=== PATIENT | male | born 1975 | race Caucasian/White ===

== ENCOUNTER 2021-02-03 09:58 | Outpatient (REF) | payer MEDICARE, MEDICAID, SELFPAY ==
[2021-02-03 16:53] LABS: ALT 34 U/L (16-63); AST 20 U/L (15-37); Alkaline Phosphatase 89 U/L (46-116); Bilirubin, Total 0.5 mg/dL (0.2-1.0); Calculated LDL 126 mg/dL (<100); Cholesterol 185 mg/dL (<200); HDL Cholesterol 36 mg/dL (40-60); Total Protein 6.6 g/dL (6.4-8.2); Triglyceride 117 mg/dL (<150)
[2021-02-03 17:11] LABS: Bilirubin, Direct 0.1 mg/dL (0.0-0.2)
== END 2021-02-03 09:59 | disposition home or self-care (01) ==
LOC: NCHCN 09:58
PROVIDERS: PCP Family Medicine; Visit Provider Nurse Practitioner Community Health
DX: K76.0 Fatty (change of) liver, not elsewhere classified (principal); Z86.39 Personal history of other endocrine, nutritional and metabolic disease; Z68.35 Body mass index [BMI] 35.0-35.9, adult
CPT/HCPCS: 80061; 80076; 83036

== ENCOUNTER 2022-11-10 16:11 | Outpatient (REF) | payer MEDICARE, MEDICAID, SELFPAY ==
[2022-11-10 22:42] LABS: Hemoglobin A1C 9.7 % (<5.7)
[2022-11-10 22:59] LABS: Anion Gap 9.4 mmol/L (3-11); BUN 17 mg/dL (7-18); CO2 27.6 mmol/L (21.0-32.0); CREATININE 0.9 mg/dL (0.70-1.30); Calcium 8.6 mg/dL (8.5-10.1); Calculated LDL 151 mg/dL (<100); Chloride 103 mmol/L (98-107); Cholesterol 206 mg/dL (<200); Estimated GFR 107.33 (mL/min/1.73m2); Glucose 264 mg/dL (74-106); HDL Cholesterol 38 mg/dL (40-60); Potassium 4.4 mmol/L (3.5-5.1); Sodium 140 mmol/L (136-145); Triglyceride 86 mg/dL (<150)
[2022-11-11 19:13] LABS: PSA, Screening 0.9 ng/mL (<=2.5)
[2022-11-12 09:47] LABS: Hepatitis C Ab w Rflx HCV PCR Negative (Negative)
[2022-11-12 10:09] LABS: HIV-1/2 Ag & Ab Screen Negative (Negative)
[2022-11-12 13:19] LABS: Chlamydia Result Negative (Negative); GC Result Negative (Negative)
== END 2022-11-10 16:12 | disposition home or self-care (01) ==
LOC: NCHCN 16:11
PROVIDERS: PCP Family Medicine; Visit Provider Nurse Practitioner Family
DX: I42.9 Cardiomyopathy, unspecified (principal); R73.03 Prediabetes; Z12.5 Encounter for screening for malignant neoplasm of prostate; Z11.4 Encounter for screening for human immunodeficiency virus [HIV]; Z11.59 Encounter for screening for other viral diseases; E78.5 Hyperlipidemia, unspecified; Z11.3 Encounter for screening for infections with a predominantly sexual mode of transmission
CPT/HCPCS: 80048; 80061; 84153; 86803; 87389; 87491; 87591; 83036

== ENCOUNTER 2022-12-01 13:38 | Outpatient (REF) | payer MEDICARE, MEDICAID, SELFPAY ==
[2022-12-01 16:04] LABS: Anion Gap 7.1 mmol/L (3-11); BUN 13 mg/dL (7-18); CO2 29.9 mmol/L (21.0-32.0); CREATININE 1.1 mg/dL (0.70-1.30); Calcium 8.8 mg/dL (8.5-10.1); Chloride 99 mmol/L (98-107); Estimated GFR 84.37 (mL/min/1.73m2); Glucose 250 mg/dL (74-106); Potassium 4.2 mmol/L (3.5-5.1); Sodium 136 mmol/L (136-145)
== END 2022-12-01 13:39 | disposition home or self-care (01) ==
LOC: NCHCN 13:38
PROVIDERS: PCP Family Medicine; Visit Provider Nurse Practitioner Family
DX: E11.9 Type 2 diabetes mellitus without complications (principal); K76.0 Fatty (change of) liver, not elsewhere classified; E66.9 Obesity, unspecified
CPT/HCPCS: 80048

== ENCOUNTER 2022-12-08 19:29 | Outpatient (REF) | payer MEDICARE, MEDICAID, SELFPAY ==
[2022-12-08 18:28] LABS: Creatinine,Urine 243.14 mg/dL
[2022-12-09 13:24] LABS: COMMENT (LAB VIEW ONLY) 243.18 mg/dL; Microalb ug/mg Crea 6.9 ug/mg Cr
== END 2022-12-08 19:30 | disposition home or self-care (01) ==
LOC: NCHCN 19:29
PROVIDERS: PCP Family Medicine; Visit Provider Nurse Practitioner Family
DX: E11.9 Type 2 diabetes mellitus without complications (principal)
CPT/HCPCS: 82043; 82565; 82570

== ENCOUNTER 2022-12-29 11:58 | Outpatient (REF) | payer MEDICARE, MEDICAID, SELFPAY ==
[2022-12-29 15:30] LABS: Anion Gap 4.8 mmol/L (3-11); BUN 13 mg/dL (7-18); CO2 30.2 mmol/L (21.0-32.0); CREATININE 1.1 mg/dL (0.70-1.30); Calcium 9.5 mg/dL (8.5-10.1); Chloride 100 mmol/L (98-107); Estimated GFR 84.37 (mL/min/1.73m2); Glucose 311 mg/dL (74-106); Potassium 4.9 mmol/L (3.5-5.1); Sodium 135 mmol/L (136-145)
== END 2022-12-29 11:59 | disposition home or self-care (01) ==
LOC: NCHCN 11:58
PROVIDERS: PCP Family Medicine; Visit Provider Nurse Practitioner Family
DX: E11.9 Type 2 diabetes mellitus without complications (principal); E66.9 Obesity, unspecified
CPT/HCPCS: 80048

== ENCOUNTER 2023-03-31 16:12 | Outpatient (REF) | payer MEDICARE, MEDICAID, SELFPAY ==
[2023-04-02 12:32] LABS: Chlamydia Result Negative (Negative); GC Result Negative (Negative)
== END 2023-03-31 16:13 | disposition home or self-care (01) ==
LOC: NCHCN 16:12
PROVIDERS: PCP Family Medicine; Visit Provider Physician Assistant
DX: N50.89 Other specified disorders of the male genital organs (principal)
CPT/HCPCS: 87491; 87591; 87086

== ENCOUNTER 2023-05-07 16:08 | Outpatient (REF) | payer MEDICARE, MEDICAID, SELFPAY ==
[2023-05-07 14:38] LABS: ALT 42 U/L (16-63); AST 24 U/L (15-37); Albumin 3.7 g/dL (3.4-5.0); Alkaline Phosphatase 94 U/L (46-116); Anion Gap 8.1 mmol/L (3-11); BUN 13 mg/dL (7-18); Bilirubin, Total 0.4 mg/dL (0.2-1.0); CO2 28.9 mmol/L (21.0-32.0); Calcium 8.9 mg/dL (8.5-10.1); Calculated LDL 137 mg/dL (<100); Chloride 104 mmol/L (98-107); Cholesterol 201 mg/dL (<200); Glucose 194 mg/dL (74-106); HDL Cholesterol 42 mg/dL (40-60); Potassium 4.5 mmol/L (3.5-5.1); Sodium 141 mmol/L (136-145); TSH (W/Ref FT4) 0.08 uIU/mL (0.36-3.74); Total Protein 6.8 g/dL (6.4-8.2); Triglyceride 114 mg/dL (<150)
[2023-05-07 15:26] LABS: Hemoglobin A1C 6.6 % (<5.7)
[2023-05-07 15:44] LABS: FREE T4 1.56 ng/dL (0.76-1.46)
== END 2023-05-07 16:09 | disposition home or self-care (01) ==
LOC: NCHCN 16:08
PROVIDERS: PCP Family Medicine; Visit Provider Nurse Practitioner Family
DX: E03.9 Hypothyroidism, unspecified (principal)
CPT/HCPCS: 80053; 80061; 83036; 84439; 84443

== ENCOUNTER 2023-11-15 19:27 | Outpatient (REF) | payer MEDICARE, MEDICAID, SELFPAY ==
[2023-11-15 22:18] LABS: COMMENT (LAB VIEW ONLY) 68.42 mg/dL; Microalb ug/mg Crea 11.5 ug/mg Cr
== END 2023-11-15 19:28 | disposition home or self-care (01) ==
LOC: NCHCN 19:27
PROVIDERS: PCP Family Medicine; Visit Provider Nurse Practitioner Family
DX: E11.9 Type 2 diabetes mellitus without complications (principal)
CPT/HCPCS: 82043; 82570

== ENCOUNTER 2024-10-09 22:26 | Outpatient (REF) | payer MEDICARE, MEDICAID, SELFPAY ==
[2024-10-09 22:49] LABS: ALT 40 U/L (16-63); AST 80 U/L (15-37); Albumin 4.6 g/dL (3.4-5.0); Alkaline Phosphatase 104 U/L (46-116); Anion Gap 5.2 mmol/L (3-11); BUN 18 mg/dL (7-18); Bilirubin, Total 1.1 mg/dL (0.2-1.0); CO2 31.8 mmol/L (21.0-32.0); Calcium 8.9 mg/dL (8.5-10.1); Calculated LDL 60 mg/dL (<100); Chloride 101 mmol/L (98-107); Cholesterol 132 mg/dL (<200); Estimated GFR 57.43 (mL/min/1.73m2); Glucose 135 mg/dL (74-106); HDL Cholesterol 44 mg/dL (>or=40); Potassium 4.1 mmol/L (3.5-5.1); Sodium 138 mmol/L (136-145); Total Protein 7.6 g/dL (6.4-8.2); Triglyceride 142 mg/dL (<150)
[2024-10-09 22:53] LABS: COMMENT (LAB VIEW ONLY) 203.99 mg/dL; Microalb ug/mg Crea 6.2 ug/mg Cr
== END 2024-10-09 22:27 | disposition home or self-care (01) ==
LOC: NCHCN 22:26
PROVIDERS: PCP Family Medicine; Visit Provider Nurse Practitioner Family
DX: E11.9 Type 2 diabetes mellitus without complications (principal)
CPT/HCPCS: 80053; 80061; 82043; 82570